=== PATIENT | male | born 1950 | race Caucasian/White ===

== ENCOUNTER 2016-06-20 17:34 | Emergency (ER) | payer OTHER ==
[~2016-06-20] VITALS: Wt 107.0 kg
[2016-06-20] MEDS ORDERED: ALBUTEROL 0.5% (NEB) 2.5 MG/0.5 ML AMP HHN STA (19:50)
[2016-06-20] MEDS ORDERED: IPRATROPIUM (NEB) 0.5 MG/2.5 ML AMP HHN ONE (20:00)
[2016-06-20] MEDS ORDERED: METHYLPREDNISOLONE 125 MG INJ IM ONE ×2 (20:00→20:30)
[2016-06-20 20:11] LABS: BASOPHIL # 0.1 10^3/ul (0.0-0.1); BASOPHILS % 0.6 % (0.0-2.0); EOSINOPHILS # 0.8 10^3/ul (0.0-0.5); EOSINOPHILS % 7.7 % (0.0-7.0); HEMATOCRIT 38.6 % (42.0-52.0); HEMOGLOBIN 13.3 g/dl (14.0-18.0); LYMPHOCYTES # 2.3 10^3/ul (0.8-2.9); LYMPHOCYTES % 21.4 % (15.0-51.0); MEAN CORPUSCULAR HEMOGLOBIN 30.7 pg (29.0-33.0); MEAN CORPUSCULAR HGB CONC 34.4 g/dl (32.0-37.0); MEAN CORPUSCULAR VOLUME 89.3 fl (82.0-101.0); MEAN PLATELET VOLUME 6.8 fl (7.4-10.4); MONOCYTE # 0.9 10^3/ul (0.3-0.9); NEUTROPHIL # 6.7 10^3/ul (1.6-7.5); NEUTROPHILS % 62.3 % (39.0-77.0); PLATELET COUNT 319 10^3/UL (140-440); RED BLOOD COUNT 4.32 10^6/ul (4.70-6.10); RED CELL DISTRIBUTION WIDTH 12.9 % (11.5-14.5); UNCORRECTED WBC 10.8 10^3/ul (4.8-10.8); WHITE BLOOD COUNT 10.8 10^3/ul (4.8-10.8)
[2016-06-20 20:13] LABS: CONDITION 1
[2016-06-20] MEDS ORDERED: METHYLPREDNISOLONE 125 MG INJ IV ONE (20:30)
[2016-06-20 20:34] LABS: ALBUMIN 4.5 g/dl (3.3-4.9)
[2016-06-20 20:35] LABS: POTASSIUM 3.9 mmol/L (3.5-5.1)
[2016-06-20 20:37] LABS: CREATININE 1.12 mg/dl (0.61-1.24)
[2016-06-20 20:38] LABS: ALBUMIN/GLOBULIN RATIO 1.6; CALCIUM 9.3 mg/dl (8.4-10.2); TOTAL PROTEIN 7.3 g/dl (6.1-8.1)
[2016-06-20 20:49] LABS: TROPONIN-I 0.018 ng/ml (0.00-0.12)
--- NOTE | 2016-06-20 21:05 | RADRPT ---
PROCEDURE: XR Chest. CLINICAL INDICATION: Shortness of breath. TECHNIQUE: PA and lateral views of the chest were obtained COMPARISON: No. FINDINGS: The cardiomediastinal silhouette, pulmonary vasculature and rodrigo are unremarkable. The lungs are cl ear. There are degenerative osteophytes in the thoracic spine. The soft tissues are normal. IMPRESSION: 1. There is no evidence of active cardiopulmonary disease. 2. Spondylosis of the thoracic spine. RPTAT:AAJJ Physician Jackelyn Date Time Electronically viewed and signed by Hemal Ragsdale Physician on 06/20/2016 21:04 ANSHU/
[2016-06-20] MEDS ORDERED: ALBU8.5H3 INH (21:26)
[2016-06-20] MEDS ORDERED: MED4DP PO (21:26)
[2016-06-20] MEDS ORDERED: BECL8.7A5 INH (21:48)
--- NOTE | 2016-06-20 22:07 | ERD ---
ER Documentation Chief Complaint Date/Time DATE: 06/20/16 TIME: 21:59 Chief Complaint COUGHING WHEEZING FOR A FEW MONTHS. ORTHOPNEA AT TIME. INTERMITTENT FEVERS HPI This is a 65-year-old male that presents to the ER with a cough for the last 2 months. Patient states that his cough is severe and constant he went from dry to productive. He denies any blood in his sputum. Patient states that cough is worse at night. He does experience shortness of breath especially when he lays down. Patient admits to wheezing. He has been given albuterol however it has not helped much. Patient states he has had low-grade fevers and chills at night. He is also complaining of right ear pain. Patient denies any weakness or any weight loss. Patient went to his primary care doctor back in April was given azithromycin, however it did not work for him. ROS 12 point review of systems was done all negative Medications Home Meds Active Scripts Beclomethasone Dip* (Qvar 80*) 7.3 Gm Inha, 2 PUFF INH BID, #1 INHALER Prov:IVANIA ALBRECHT 06/20/16 Albuterol Sulfate* (Proair HFA*) 8.5 Gm Hfa.aer.ad, 2 PUFF INH Q4, #1 INHALER Prov:IVANIA ALBRECHT 06/20/16 Methylprednisolone* (Medrol* DOSE PACK) 4 Mg/Dose-Pack Tab.ds.pk, 4 MG PO . DIRECTED for 6 Days, PACKET Prov:TRENAIVANIA MELLO 06/20/16 PMhx/Soc History of Surgery: Yes (bilateral hips t and a. eye surgery ) Hx Miscellaneous Medical Probl: Yes (hypertension glaucoma. diab with pills ) Hx Alcohol Use: No Hx Substance Use: No Hx Tobacco Use: No Physical Exam Vitals Vital Signs Date Time Temp Pulse Resp B/P Pulse Ox O2 Delivery O2 Flow Rate FiO2 06/20/16 20:21 87 20 97 21 06/20/16 17:38 99.5 91 22 188/99 98 Physical Exam GENERAL: The patient is well-developed, well-nourished, in no acute distress. NECK: Cervical spine is non tender with no step off. Supple, no nuchal rigidity HEENT: Atraumatic. Pupils equal, round and reactive to light. Extraocular muscles are grossly intact. Conjunctivae pink, no discharge. Bilateral tympanic membranes are clear with no evidence of erythema, effusion or dulling of the light reflex. Tonsilar erythema with no exudates or uvular deviation. Clear rhinorrhea. RESPIRATORY: expiratory wheezing in all lung klein. no rales or rhonchi HEART: Regular rate and rhythm. No murmurs, clicks, rubs or gallops. EXTREMITIES: No clubbing or cyanosis. Full range of motion. Grossly neurovascularly intact. NEUROLOGIC: Alert and oriented SKIN: There is no rash. The skin is warm and dry. Result Diagram: 06/20/16200106/20/162001 Results 24 hrs Laboratory Tests Test 06/20/16 20:02 Alanine Aminotransferase (ALT/SGPT) 32IU/L Albumin 4.5g/dl Albumin/Globulin Ratio 1.60 Alkaline Phosphatase 72IU/L Anion Gap 19 Aspartate Amino Transf (AST/SGOT) 22IU/L B-Type Natriuretic Peptide 156PG/ML Basophils # 0.110^3/ul Basophils % 0.6% Blood Morphology Comment Blood Urea Nitrogen 12mg/dl Calcium Level 9.3mg/dl Carbon Dioxide Level 28mmol/L Chloride Level 100mmol/L Creatinine 1.12mg/dl Direct Bilirubin 0.00mg/dl Eosinophils # 0.810^3/ul Eosinophils % 7.7% Globulin 2.80g/dl Glucose Level 91mg/dl Hematocrit 38.6% Hemoglobin 13.3g/dl Indirect Bilirubin 0.0mg/dl Lymphocytes # 2.310^3/ul Lymphocytes % 21.4% Mean Corpuscular Hemoglobin 30.7pg Mean Corpuscular Hemoglobin Concent 34.4g/dl Mean Corpuscular Volume 89.3fl Mean Platelet Volume 6.8fl Monocytes # 0.910^3/ul Monocytes % 8.0% Neutrophils # 6.710^3/ul Neutrophils % 62.3% Nucleated Red Blood Cells # 0.010^3/ul Nucleated Red Blood Cells % 0.0/100WBC Platelet Count 22233^3/UL Potassium Level 3.9mmol/L Red Blood Count 4.3210^6/ul Red Cell Distribution Width 12.9% Sodium Level 143mmol/L Total Bilirubin 0.0mg/dl Total Protein 7.3g/dl Troponin I 0.018ng/ml White Blood Count 10.810^3/ul Current Medications Medications (Trade) Dose Ordered Sig/Kenny Route PRN Reason Start Time Stop Time Status Last Admin Dose Admin Albuterol (Proventil 0.5% (Neb)) 5 mg ONCE STAT HHN 06/20/16 19:50 06/20/16 19:54 DC 06/20/16 20:20 Ipratropium Dewitt (Atrovent 0.02% (Neb)) 0.5 mg ONCE ONCE HHN 06/20/16 20:00 06/20/16 20:02 DC 06/20/16 20:20 Methylprednisolone Sodium Succinate (Solu-Medrol) 80 mg ONCE ONCE IM 06/20/16 20:00 06/20/16 20:03 DC Methylprednisolone Sodium Succinate (Solu-Medrol) 80 mg ONCE ONCE IV 06/20/16 20:30 06/20/16 20:30 DC Methylprednisolone Sodium Succinate (Solu-Medrol) 80 mg ONCE ONCE IM 06/20/16 20:30 06/20/16 20:31 DC 06/20/16 20:09 Procedures/MDM Differential diagnosis includes but is not limited to; bronchitis, pneumonia, CHF, pertussis, TB, viral infection, asthma. This is a 65-year-old male presents to the ER with cough for the last 2 months. Patient may have bronchitis with wheezing. EKG was taken [address] elevation or T-wave inversion. It was read by Dr. Crocker. There is no evidence of pneumonia on chest x-ray. Patient's BNP was not impressive. Patient will be sent home with a steroid pack, Qvar, albuterol. Patient urgently needs to follow-up with his primary care doctor and see a tafe registrar for further testing. Patient needs to return to ER sooner if symptoms worsen. My medical decision making sure with the patient he understands and agrees with plan. Departure Diagnosis: Primary Impression: Bronchitis Condition: Stable Patient Instructions: Bronchitis With Wheezing (Adult) Additional Instructions: Call your primary care doctor TOMORROW for an appointment during the next 1-2 days.See the doctor sooner or return here if your condition worsens before your appointment time. IVANIA ALBRECHT Jun 20, 2016 22:07
== END 2016-06-20 22:18 | disposition home or self-care (01) ==
LOC: FTE 17:34
DX: J40 Bronchitis, not specified as acute or chronic (principal); E11.9 Type 2 diabetes mellitus without complications; I10 Essential (primary) hypertension; Z79.84 Long term (current) use of oral hypoglycemic drugs
CPT/HCPCS: 36415; 71020; 80053; 83880; 84484; 85025; 93005; 94664; 96372; 99285; J2930